=== PATIENT | female | born 1980 | race Hispanic/Latino ===

== ENCOUNTER 2020-09-05 11:34 | Emergency (ER) | payer OTHER ==
[2020-09-05 11:47] VITALS: BP 107/70
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
[2020-09-05] MEDS ORDERED: HYDROGEN PEROXIDE 118 ML SOLUTION TP STA (15:03)
[2020-09-05] MEDS ORDERED: HYDROGEN PEROXIDE 118 ML SOLUTION ONE (15:03)
[2020-09-05] MEDS ORDERED: ONDANSETRON 4 MG ODT TAB PO ONE (15:10)
[2020-09-05] MEDS ORDERED: IBUPROFEN 800 MG TAB PO ONE (15:15)
[2020-09-05] MEDS ORDERED: LIDOCAINE-MPF (1%) 10 MG/1 ML VIAL 5 ML INFILTRATI ONE (15:15)
[2020-09-05] MEDS ORDERED: DIPHtheria,PERTUSSIS(ACELL),TETANUS VACCINE/PF 0.5 ML VIAL IM ONE (15:19)
== END 2020-09-05 16:39 | disposition home or self-care (01) ==
LOC: ED 11:34
DX: S46.912A Strain of unspecified muscle, fascia and tendon at shoulder and upper arm level, left arm, initial encounter (principal); S16.1XXA Strain of muscle, fascia and tendon at neck level, initial encounter; S01.111A Laceration without foreign body of right eyelid and periocular area, initial encounter; Z79.899 Other long term (current) drug therapy; Z88.2 Allergy status to sulfonamides; Z91.040 Latex allergy status; Z91.09 Other allergy status, other than to drugs and biological substances; V49.59XA Passenger injured in collision with other motor vehicles in traffic accident, initial encounter; Y92.410 Unspecified street and highway as the place of occurrence of the external cause; Y93.89 Activity, other specified; Y99.8 Other external cause status
CPT/HCPCS: 70450; 72125; 90471; 90715; Q0162

== ENCOUNTER 2020-09-13 12:51 | Emergency (ER) | payer OTHER ==
[2020-09-13 13:11] VITALS: BP 136/46
--- NOTE | 2020-09-13 14:45 | Emergency Department Report ---
Suture/Staple Removal - [facility] Chief Complaint: Laceration/Recheck/Suture Stated Complaint: SUTURE REMOVAL Time Seen by Provider: 09/13/20 14:18 When Sutures or Eugenio Placed: 5-7 Days Ago Wound Location: Status post laceration to the right brow resulting in three 6-0 Prolene sti ED Review of Systems ROS: Stated complaint: SUTURE REMOVAL Other details as noted in HPI Comment: All other systems reviewed and negative ED Past Medical Hx - Past Medical History Previous Medical History?: No - Surgical History Past Surgical History?: No - Social History Smoking Status: Never Smoker Substance Use Type: None - Medications Home Medications: Home Medications Medication Instructions Recorded Confirmed Last Taken Type Ibuprofen [Motrin 800 MG tab] 800 mg PO TID PRN #21 tablet 09/05/20 Unknown Rx Mupirocin [Bactroban 2% OINT] 1 applic TP TID 7 Days #1 tube 09/05/20 Unknown Rx methOCARBAMOL [Robaxin TAB] 1,500 mg PO ONCE #20 tablet 09/05/20 Unknown Rx Suture Removal Exam - Exam General: Vital signs noted. No distress. Alert and acting appropriately. Wound: No Pathologic Erythema, No Tenderness, No Drainage, No Pus, No Wound Dehiscence Other Systems: All other systems reviewed and are unremarkable. ED Course Vital Signs 09/13/20 13:06 Temperature 98.1 F Pulse Rate 53 L Respiratory 16 Rate Blood Pressure 136/46 [Right] O2 Sat by Pulse 95 Oximetry - Procedure Description Procedures done: 3 sutures were removed with no complications Critical care attestation.: If time is entered above; I have spent that time in minutes in the direct care of this critically ill patient, excluding procedure time. ED Disposition Clinical Impression: Visit for suture removal Disposition: DC-01 TO HOME OR SELFCARE Is pt being admited?: No Does the pt Need Aspirin: No Condition: Stable Instructions: Wound Closure Removal, Care After Referrals: [facility] [Provider Group] - 3-5 Days
== END 2020-09-13 14:26 | disposition home or self-care (01) ==
LOC: ED 12:51
DX: T14.8XXD Other injury of unspecified body region, subsequent encounter (principal); Z53.21 Procedure and treatment not carried out due to patient leaving prior to being seen by health care provider